=== PATIENT | male | born 1950 | race American Indian/Alaskan Native ===

== ENCOUNTER 2018-08-13 11:22 | Emergency (ER) | payer MEDICARE ==
[2018-08-13 12:13] VITALS: BP 129/85
[2018-08-13] MEDS ORDERED: DELTASONE PO ONE (12:59)
[2018-08-13] MEDS ORDERED: IBUPROFEN PO ONE (12:59)
--- NOTE | 2018-08-13 13:01 | Emergency Department Report ---
ED Extremity Problem HPI - General Chief complaint: Extremity Injury, Lower Stated complaint: RT BIG TOE INJURY Time Seen by Provider: 08/13/18 12:56 Source: patient Mode of arrival: Ambulatory Limitations: No Limitations - History of Present Illness Initial comments: 68 y/o male comes in for left great toe swelling and pain. Denies any trauma. started 2 days ago. Does not drink. No history of gout . MD Complaint: extremity pain, extremity swelling Onset/Timin -: days(s) Location: left, toe History of Same: No -: Yes arthralgia, No fever Radiation: proximal Severity scale (0 -10): 10 Quality: stabbing, aching Consistency: constant Improves with: nothing Worsens with: walking Associated Symptoms: denies other symptoms - Related Data Previous Rx's Medication Instructions Recorded Last Taken Type Ciprofloxacin HCl [Ciprofloxacin 500 mg PO BID 3 Days #6 tablet 07/06/18 Unknown Rx TAB] Loperamide [Imodium] 2 day PO TID 2 Days #12 capsule 07/06/18 Unknown Rx Promethazine [Phenergan] 25 mg PO Q6HR PRN #10 tab 07/06/18 Unknown Rx Ibuprofen [Motrin 600 MG tab] 600 mg PO ONCE PRN #15 tablet 08/13/18 Unknown Rx predniSONE [Deltasone] 40 mg PO QDAY 4 Days #8 tablet 08/13/18 Unknown Rx Allergies Allergy/AdvReac Type Severity Reaction Status Date / Time No Known Allergies Allergy Verified 08/13/18 11:25 ED Review of Systems ROS: Stated complaint: RT BIG TOE INJURY Other details as noted in HPI Comment: All other systems reviewed and negative ED Past Medical Hx - Past Medical History Hx Hypertension: Yes Additional medical history: kidney disease , high cholesterol - Surgical History Additional Surgical History: prostate, abd for bowel obs. - Social History Smoking Status: Never Smoker Substance Use Type: None - Medications Home Medications: Home Medications Medication Instructions Recorded Confirmed Last Taken Type Ciprofloxacin HCl [Ciprofloxacin 500 mg PO BID 3 Days #6 tablet 07/06/18 Unknown Rx TAB] Loperamide [Imodium] 2 day PO TID 2 Days #12 capsule 07/06/18 Unknown Rx Promethazine [Phenergan] 25 mg PO Q6HR PRN #10 tab 07/06/18 Unknown Rx Ibuprofen [Motrin 600 MG tab] 600 mg PO ONCE PRN #15 tablet 08/13/18 Unknown Rx predniSONE [Deltasone] 40 mg PO QDAY 4 Days #8 tablet 08/13/18 Unknown Rx ED Physical Exam - General Limitations: No Limitations General appearance: alert, in no apparent distress - Head Head exam: Present: atraumatic, normocephalic - Eye Eye exam: Present: normal appearance - ENT ENT exam: Present: mucous membranes moist - Neck Neck exam: Present: normal inspection - Expanded Lower Extremity Exam Left Hip exam: Present: full ROM Upper Leg exam: Present: normal inspection Knee exam: Present: normal inspection Lower Leg exam: Present: normal inspection, abrasion Foot/Toe exam: Present: tenderness, swelling, erythema. Absent: deformity Neuro vascular tendon exam: Present: no vascular compromise Gait: Positive: observed and limited by pain - Back Exam Back exam: Present: normal inspection - Neurological Exam Neurological exam: Present: alert, oriented X3 - Psychiatric Psychiatric exam: Present: normal affect, normal mood - Skin Skin exam: Present: warm, dry, intact, normal color. Absent: rash ED Course Vital Signs 08/13/18 12:09 Temperature 97.6 F Pulse Rate 81 Respiratory 18 Rate Blood Pressure 129/85 O2 Sat by Pulse 99 Oximetry ED Medical Decision Making - Medical Decision Making 68 y/o male with left great toe pain , swelling and rednes. Dx with gout. Will give prednisone and ibuprofen. Will give rx for prednisone and ibuprofen. Needs to follow up with his PCP. Critical care attestation.: If time is entered above; I have spent that time in minutes in the direct care of this critically ill patient, excluding procedure time. ED Disposition Clinical Impression: Gout Disposition: DC-01 TO HOME OR SELFCARE Is pt being admited?: No Does the pt Need Aspirin: No Condition: Stable Instructions: Acute Gouty Arthritis (ED) Additional Instructions: Take medication as prescribed follow up with your Primary Care Provider if symptoms persist or gets worst. Prescriptions: predniSONE [Deltasone] 40 mg PO QDAY 4 Days #8 tablet Ibuprofen [Motrin 600 MG tab] 600 mg PO ONCE PRN #15 tablet PRN Reason: Pain , Severe (7-10) Referrals: WATSON PERDOMO MD [Primary Care Provider] - 3-5 Days
== END 2018-08-13 13:26 | disposition home or self-care (01) ==
LOC: ED 11:22
DX: M10.072 Idiopathic gout, left ankle and foot (principal); I10 Essential (primary) hypertension; E78.00 Pure hypercholesterolemia, unspecified; Z79.1 Long term (current) use of non-steroidal anti-inflammatories (NSAID)
CPT/HCPCS: 99282; J7512

== ENCOUNTER 2020-11-25 07:09 | Inpatient (IN) | payer MEDICARE ==
--- NOTE | 2020-11-25 07:16 | Emergency Department Report ---
HPI - General Time Seen by Provider: 11/25/20 07:12 - HPI HPI: 70-year-old -Marshallese male presents to the emergency department via EMS from home with complaint of a left-sided facial droop and left-sided weakness that the patient noticed upon waking this morning around 6 AM. Patient went to sleep last night around 10 PM and was at his normal baseline at that time. He h as a past medical history of hypertension, chronic kidney disease not on HD, CHF. No history of any previous CVA. He denies any headache, vision change, numbness or paresthesias, chest pain, shortness of breath. He has not taken anything, nor received anything, for his symptoms prior to presentation today. No recent travel or sick contacts at home. ED Past Medical Hx - Past Medical History Hx Hypertension: Yes Additional medical history: kidney disease , high cholesterol - Surgical History Additional Surgical History: prostate, abd for bowel obs. - Social History Smoking Status: Never Smoker Substance Use Type: None - Medications Home Medications: Home Medications Medication Instructions Recorded Confirmed Last Taken Type Ciprofloxacin HCl [Ciprofloxacin 500 mg PO BID 3 Days #6 tablet 07/06/18 Unknown Rx TAB] Loperamide [Imodium] 2 day PO TID 2 Days #12 capsule 07/06/18 Unknown Rx Promethazine [Phenergan] 25 mg PO Q6HR PRN #10 tab 07/06/18 Unknown Rx Ibuprofen [Motrin 600 MG tab] 600 mg PO ONCE PRN #15 tablet 08/13/18 Unknown Rx predniSONE [Deltasone] 40 mg PO QDAY 4 Days #8 tablet 08/13/18 Unknown Rx ED Review of Systems ROS: Stated complaint: STROKE Other details as noted in HPI Comment: All other systems reviewed and negative Constitutional: denies: chills, fever Eyes: denies: eye pain, vision change ENT: denies: ear pain, throat pain Respiratory: denies: cough, shortness of breath Cardiovascular: denies: chest pain, palpitations Gastrointestinal: denies: abdominal pain, vomiting Genitourinary: denies: dysuria, discharge Musculoskeletal: denies: back pain, arthralgia Skin: denies: rash, lesions Neurological: weakness. denies: headache Physical Exam - Physical Exam Physical Exam: GENERAL: The patient is well-developed well-nourished. HENT: Normocephalic. Atraumatic. Patient has moist mucous membranes. EYES: Extraocular motions are intact. No nystagmus. NECK: Supple. Trachea is midline. CHEST/LUNGS: Clear to auscultation. There is no respiratory distress noted. HEART/CARDIOVASCULAR: Regular. There is no tachycardia. There is no murmur. ABDOMEN: Abdomen is soft, nontender. Patient has normal bowel sounds. There is no abdominal distention. SKIN: Skin is warm and dry. NEURO: The patient is awake, alert, and oriented. The patient is cooperative. Left-sided nasolabial fold paresis. Mild left upper extremity drift that does not hit the gurney. Muscle strength 5 out of 5 for bilateral lower extremities. MUSCULOSKELETAL: There is no tenderness or deformity. There is no limitation range of motion. ED Medical Decision Making - Lab Data Result diagrams: 11/25/20 07:50 11/25/20 07:50 Lab Results 11/25/20 11/25/20 11/25/20 Range/Units 07:50 07:50 07:50 WBC 3.8 L (4.5-11.0) K/mm3 RBC 5.20 H (3.65-5.03) M/mm3 Hgb 15.3 H (11.8-15.2) gm/dl Hct 47.1 H (35.5-45.6) % MCV 90 (84-94) fl MCH 29 (28-32) pg MCHC 33 (32-34) % RDW 13.4 (13.2-15.2) % Plt Count 105 L (140-440) K/mm3 Lymph % (Auto) 33.4 (13.4-35.0) % [place] % (Auto) 10.6 H (0.0-7.3) % Eos % (Auto) 1.5 (0.0-4.3) % Baso % (Auto) 0.6 (0.0-1.8) % Lymph # (Auto) 1.3 (1.2-5.4) K/mm3 [place] # (Auto) 0.4 (0.0-0.8) K/mm3 Eos # (Auto) 0.1 (0.0-0.4) K/mm3 Baso # (Auto) 0.0 (0.0-0.1) K/mm3 Seg Neutrophils % 53.9 (40.0-70.0) % Seg Neutrophils # 2.0 (1.8-7.7) K/mm3 PT 14.1 (12.2-14.9) Sec. INR 1.03 (0.87-1.13) APTT 32.8 (24.2-36.6) Sec. Thrombin Time 16.6 (15.1-19.6) Sec. Sodium 139 (137-145) mmol/L Potassium 4.3 (3.6-5.0) mmol/L Chloride 105.1 (98-107) mmol/L Carbon Dioxide 28 (22-30) mmol/L Anion Gap 10 mmol/L BUN 18 (9-20) mg/dL Creatinine 1.1 (0.8-1.3) mg/dL Estimated GFR > 60 ml/min BUN/Creatinine Ratio 16 % Glucose 108 H (75-100) mg/dL Calcium 9.5 (8.4-10.2) mg/dL Iron (49-181) ug/dL TIBC (250-450) mcg/dL Total Bilirubin 0.50 (0.1-1.2) mg/dL AST 33 (5-40) units/L ALT 22 (7-56) units/L Alkaline Phosphatase 79 (35-129) units/L Total Creatine Kinase 247 H (55-170) units/L CK-MB (CK-2) 8.0 H (0.0-4.0) ng/mL CK-MB (CK-2) Rel Index 3.2 (0-4) Troponin T 0.057 H (0.00-0.029) ng/mL Total Protein 6.5 (6.3-8.2) g/dL Albumin 3.8 L (3.9-5) g/dL Albumin/Globulin Ratio 1.4 % Triglycerides 65 (2-149) mg/dL Cholesterol 213 H (50-199) mg/dL LDL Cholesterol Direct 137 H (50-130) mg/dL HDL Cholesterol 71 H (40-59) mg/dL Cholesterol/HDL Ratio 3.00 % Vitamin B12 (211-911) pg/mL Folate (7.3-26.0) ng/mL TSH (0.270-4.200) mlU/mL Plasma/Serum Alcohol (0-0.07) % 11/25/20 11/25/20 11/25/20 Range/Units 07:50 07:50 07:50 WBC (4.5-11.0) K/mm3 RBC (3.65-5.03) M/mm3 Hgb (11.8-15.2) gm/dl Hct (35.5-45.6) % MCV (84-94) fl MCH (28-32) pg MCHC (32-34) % RDW (13.2-15.2) % Plt Count (140-440) K/mm3 Lymph % (Auto) (13.4-35.0) % [place] % (Auto) (0.0-7.3) % Eos % (Auto) (0.0-4.3) % Baso % (Auto) (0.0-1.8) % Lymph # (Auto) (1.2-5.4) K/mm3 [place] # (Auto) (0.0-0.8) K/mm3 Eos # (Auto) (0.0-0.4) K/mm3 Baso # (Auto) (0.0-0.1) K/mm3 Seg Neutrophils % (40.0-70.0) % Seg Neutrophils # (1.8-7.7) K/mm3 PT (12.2-14.9) Sec. INR (0.87-1.13) APTT (24.2-36.6) Sec. Thrombin Time (15.1-19.6) Sec. Sodium (137-145) mmol/L Potassium (3.6-5.0) mmol/L Chloride (98-107) mmol/L Carbon Dioxide (22-30) mmol/L Anion Gap mmol/L BUN (9-20) mg/dL Creatinine (0.8-1.3) mg/dL Estimated GFR ml/min BUN/Creatinine Ratio % Glucose (75-100) mg/dL Calcium (8.4-10.2) mg/dL Iron 45 L (49-181) ug/dL TIBC 271 (250-450) mcg/dL Total Bilirubin (0.1-1.2) mg/dL AST (5-40) units/L ALT (7-56) units/L Alkaline Phosphatase (35-129) units/L Total Creatine Kinase (55-170) units/L CK-MB (CK-2) (0.0-4.0) ng/mL CK-MB (CK-2) Rel Index (0-4) Troponin T (0.00-0.029) ng/mL Total Protein (6.3-8.2) g/dL Albumin (3.9-5) g/dL Albumin/Globulin Ratio % Triglycerides (2-149) mg/dL Cholesterol (50-199) mg/dL LDL Cholesterol Direct (50-130) mg/dL HDL Cholesterol (40-59) mg/dL Cholesterol/HDL Ratio % Vitamin B12 (211-911) pg/mL Folate (7.3-26.0) ng/mL TSH 2.370 (0.270-4.200) mlU/mL Plasma/Serum Alcohol < 0.01 (0-0.07) % 11/25/20 11/25/20 Range/Units 07:50 07:50 WBC (4.5-11.0) K/mm3 RBC (3.65-5.03) M/mm3 Hgb (11.8-15.2) gm/dl Hct (35.5-45.6) % MCV (84-94) fl MCH (28-32) pg MCHC (32-34) % RDW (13.2-15.2) % Plt Count (140-440) K/mm3 Lymph % (Auto) (13.4-35.0) % [place] % (Auto) (0.0-7.3) % Eos % (Auto) (0.0-4.3) % Baso % (Auto) (0.0-1.8) % Lymph # (Auto) (1.2-5.4) K/mm3 [place] # (Auto) (0.0-0.8) K/mm3 Eos # (Auto) (0.0-0.4) K/mm3 Baso # (Auto) (0.0-0.1) K/mm3 Seg Neutrophils % (40.0-70.0) % Seg Neutrophils # (1.8-7.7) K/mm3 PT (12.2-14.9) Sec. INR (0.87-1.13) APTT (24.2-36.6) Sec. Thrombin Time (15.1-19.6) Sec. Sodium (137-145) mmol/L Potassium (3.6-5.0) mmol/L Chloride (98-107) mmol/L Carbon Dioxide (22-30) mmol/L Anion Gap mmol/L BUN (9-20) mg/dL Creatinine (0.8-1.3) mg/dL Estimated GFR ml/min BUN/Creatinine Ratio % Glucose (75-100) mg/dL Calcium (8.4-10.2) mg/dL Iron (49-181) ug/dL TIBC (250-450) mcg/dL Total Bilirubin (0.1-1.2) mg/dL AST (5-40) units/L ALT (7-56) units/L Alkaline Phosphatase (35-129) units/L Total Creatine Kinase (55-170) units/L CK-MB (CK-2) (0.0-4.0) ng/mL CK-MB (CK-2) Rel Index (0-4) Troponin T (0.00-0.029) ng/mL Total Protein (6.3-8.2) g/dL Albumin (3.9-5) g/dL Albumin/Globulin Ratio % Triglycerides (2-149) mg/dL Cholesterol (50-199) mg/dL LDL Cholesterol Direct (50-130) mg/dL HDL Cholesterol (40-59) mg/dL Cholesterol/HDL Ratio % Vitamin B12 694.3 (211-911) pg/mL Folate 13.22 (7.3-26.0) ng/mL TSH (0.270-4.200) mlU/mL Plasma/Serum Alcohol (0-0.07) % - EKG Data -: EKG Interpreted by Oh EKG shows normal: sinus rhythm, axis (Left axis deviation), intervals, QRS complexes (Q waves to the septal leads), ST-T waves (Flattening of the T waves laterally) Rate: normal - EKG Data When compared to previous EKG there are: previous EKG unavailable Interpretation: other (Sinus rhythm at 75 bpm, left axis deviation, Q waves to the septal leads, flattening of the T waves laterally. No ST elevation AL.) - Radiology Data Radiology results: report reviewed CT HEAD WITHOUT CONTRAST INDICATION: CODE STROKE CALL ER MAIN AT 8199 Stroke symptoms TECHNIQUE: All CT scans at this location are performed using CT dose reduction for ALARA by means of automated exposure control. COMPARISON: None available. FINDINGS: BRAIN: No hemorrhage or mass effect are seen. No evidence of acute infarction is noted. ORBITS: Normal as visualized. SOFT TISSUES OF HEAD: Normal. CALVARIUM: Normal. VISUALIZED PARANASAL SINUSES AND MASTOID AIR CELLS: Moderate mucosal thickening is seen in the right maxillary sinus with mild right ethmoid thickening noted. No air-fluid levels are seen. ADDITIONAL FINDINGS: None. IMPRESSION: No acute intracranial abnormality. - Medical Decision Making This patient presents to the emergency department with a complaint of left-sided facial droop and left-sided weakness that started upon waking. Last known well time was at 10 PM last night, which takes this patient out of the TPA window. Code stroke was initiated. CT scan of the head without contrast does not show any hemorrhage or large vessel occlusion. He was seen by the telemedicine neurologist, whose recommendations are in the chart, but he agrees with the plan for admission and MRI, but does not feel the patient requires CT angiography studies at this time. Patient's labs have been mostly unremarkable except for a slightly elevated troponin level. The patient denies any chest pain and EKG does not have any morphology consistent with ST elevation myocardial infarction. The patient was given a full dose aspirin and admitted to the hospitalist service under Dr. Kelly. After admission, while still boarding in the emergency department, the patient had a brain MRI that shows an acute infarction of the right putamen and joy radiata. Critical Care Time: Yes Critical care time in (mins) excluding proc time.: 35 Critical care attestation.: If time is entered above; I have spent that time in minutes in the direct care of this critically ill patient, excluding procedure time. Critical care time was spent on this patient in doing his initial evaluation, multiple reevaluations, ordering and interpretation of labs and imaging, discussion with the telemedicine neurologist, multiple discussions with the patient. Critical Care Time: 35 minutes ED Disposition Clinical Impression: Elevated troponin CVA (cerebral vascular accident) Qualifiers: CVA mechanism: unspecified Qualified Code(s): I63.9 - Cerebral infarction, unspecified Disposition: ADMITTED INPATIENT Is pt being admited?: Yes Condition: Serious Time of Disposition: 08:40
--- NOTE | 2020-11-25 07:49 | Emergency Department Report ---
Blank Doc - Documentation Documentation: [facility] Consult Note # Demographics Consult Type: Acute Stroke Level 2 (4.5-24 hrs) Patient Location: Emergency Room First Name: Hipolito Last Name: Abe Date of : 1950 Age: 70 Gender: Male Facility: [facility] Time of Initial Page ( Time): 11/25/2020, 07:14 Time of Return Call ( Time): 11/25/2020, 07:15 # HPI History: 70 yo man last normal last night, presented with new onset of left sided weakness upon waking up today # Scores Time of exam and NIHSS ( Time): 11/25/2020, 07:42 Facial Palsy 4: [1] = Minor paralysis Motor Arm Left 5a: [1] = Drift NIHSS Total: 2 # Data Time Head CT personally read by me ( Time): 11/25/2020, 07:[address]: no bleed # Assessment Impression: left sided weakness acute stroke is possible out of tpa window # Plan Thrombolytic/Intervention: NOT IV Thrombolysis or IA Intervention candidate Thrombolytic Exclusion: > 4.5 hours Intraarterial Exclusion: no large vessel occlusion (LVO) Target Blood Pressure: SBP < 220 Labs: CBC comprehensive metabolic panel lipid panel TSH ua Diagnostic Test: echo with bubble study Therapy/Evaluation: speech/swallow consultation Medication: aspirin 325 mg daily DVT Prophylaxis: heparin 5000 units subcutaneously q 12 hours Other: consult on-site neurology service for full work-up and evaluation recommendations If patient has any neurological deterioration please call me back immediately I have discussed my recommendations with the referring provider Additional Recommendations: Admit for stroke work up mri brain Disposition: admit # Logistics Telemedicine: Interactive 2 way audio and visual telecommunication technology was utilized during this visit
--- NOTE | 2020-11-25 07:50 | Cat Scan Report ---
CT HEAD WITHOUT CONTRAST INDICATION: CODE STROKE CALL ER MAIN AT 8199 Stroke symptoms TECHNIQUE: All CT scans at this location are performed using CT dose reduction for ALARA by means of automated exposure control. COMPARISON: None available. FINDINGS: BRAIN: No hemorrhage or mass effect are seen. No evidence of acute infarction is noted. ORBITS: Normal as visualized. SOFT TISSUES OF HEAD: Normal. CALVARIUM: Normal. VISUALIZED PARANASAL SINUSES AND MASTOID AIR CELLS: Moderate mucosal thickening is seen in the right maxillary sinus with mild right ethmoid thickening noted. No air-fluid levels are seen. ADDITIONAL FINDINGS: None. IMPRESSION: No acute intracranial abnormality. CODE STROKE: Time of Communication (PARALEGAL SUPERVISOR/CDT): 0678 Licensed Practitioner Receiving Report: Dr. Perez Hernandez Signer Name: Richy Henning MD Signed: 11/25/2020 7:46 AM Workstation Name: [id number]
[2020-11-25 07:57] LABS: Basophils % (Auto) 0.6 % (0.0-1.8); Eosinophils # (Auto) 0.1 K/mm3 (0.0-0.4); Eosinophils % (Auto) 1.5 % (0.0-4.3); Hematocrit 47.1 % (35.5-45.6); Hemoglobin 15.3 gm/dl (11.8-15.2); Lymphocytes # (Auto) 1.3 K/mm3 (1.2-5.4); Lymphocytes % (Auto) 33.4 % (13.4-35.0); Mean Corpuscular HGB Conc 33 % (32-34); Mean Corpuscular Volume 90 fl (84-94); Monocytes # (Auto) 0.4 K/mm3 (0.0-0.8); Monocytes % (Auto) 10.6 % (0.0-7.3); Platelet Count 105 K/mm3 (140-440); Red Cell Distribution Width 13.4 % (13.2-15.2)
[2020-11-25 08:07] LABS: INR 1.03 (0.87-1.13)
[2020-11-25 08:08] LABS: Partial Thromboplastin Time 32.8 Sec. (24.2-36.6); Thrombin Time 16.6 Sec. (15.1-19.6)
[2020-11-25 08:15] LABS: Alanine Aminotransferase 22 units/L (7-56); Albumin 3.8 g/dL (3.9-5); BUN/Creatinine Ratio 16; Blood Urea Nitrogen 18 mg/dL (9-20); Calcium 9.5 mg/dL (8.4-10.2); Hemolysis Index 8
[2020-11-25] MEDS ORDERED: ASPIRIN 81 MG TAB CHEW PO ONE (08:22)
[2020-11-25 08:49] LABS: HDL Cholesterol 71 mg/dL (40-59); LDL Cholesterol,Direct 137 mg/dL (50-130)
--- NOTE | 2020-11-25 10:39 | History and Physical Report ---
History of Present Illness Date of examination: 11/25/20 Date of admission: 11/25/20 08:40 Chief complaint: left sided weakness History of present illness: 70-year-old -Maur[place] male with h/o CHF, HTN, HLD, CKD presents to the emergency department via EMS from home with complaint of a left-sided facial droop and left-sided weakness. Patient noticed symptoms upon waking this morning around 6 AM. Patient went to sleep last night around 10 PM and was at his normal baseline at that time. Patient has no history of any previous CVA. He denies any headache, vision change, numbness or paresthesias, chest pain, shortness of breath. He has not taken anything, nor received anything, for his symptoms prior to presentation today. No recent travel or sick contacts at home. CT head obtained in the ER showed no acute process, teleneurology was consulted and patient did not qualify for TPA. Patient is being admitted for stroke work-up. Review of System: Constitutional: no fever, no chills, no weight loss Ears, eyes, nose, mouth and throat: no nasal congestion, no nasal discharge, no sinus pressure, no vision change, no red eye. Neck: No neck pain or rigidity. Cardiovascular: No chest pain, no orthopnea, no palpitations, no leg swelling Respiratory: No shortness of breath, no cough, no congestion, no wheezing Gastrointestinal: no abdominal pain, no nausea, no vomiting Genitourinary : no dysuria, no hematuria Musculoskeletal: no joint swelling or muscle ache Integumentary: no rash, no pruritis Neurological: no parathesias, no numbness, no tingling, + left-sided weakness Endocrine: no cold or heat intolerance, no polyuria or polydipsia Hematologic/Lymphatic: no easy bruising, no easy bleeding, no gland swelling Allergic/Immunologic: no urticaria, no angioedema. Past History Past Medical History: heart failure, hypertension, other (Asthma) Past Surgical History: No surgical history Social history: denies: smoking, alcohol abuse Family history: hypertension Medications and Allergies Allergies Allergy/AdvReac Type Severity Reaction Status Date / Time No Known Allergies Allergy Verified 08/13/18 11:25 Home Medications Medication Instructions Recorded Confirmed Last Taken Type Ciprofloxacin HCl [Ciprofloxacin 500 mg PO BID 3 Days #6 tablet 05/09/19 09/29/21 Unknown Rx TAB] Loperamide [Imodium] 2 day PO TID 2 Days #12 capsule 07/06/18 11/26/20 Unknown Rx Promethazine [Phenergan] 25 mg PO Q6HR PRN #10 tab 07/06/18 11/26/20 Unknown Rx Ibuprofen [Motrin 600 MG tab] 600 mg PO ONCE PRN #15 tablet 08/13/18 11/26/20 Unknown Rx predniSONE [Deltasone] 40 mg PO QDAY 4 Days #8 tablet 08/13/18 11/26/20 Unknown Rx Exam - Physical Exam Narrative exam: GENERAL: well-developed and well-nourished elderly -Mauritian male lying on bed appeared to be in no discomfort. HEENT: Normocephalic. Atraumatic. No conjunctival congestion or icterus. Patient has moist mucous membranes. NECK: Supple. Trachea midline. CHEST/LUNGS: Clear to auscultated bilaterally, breathing nonlabored. No wheezes crackles or rhonchi. HEART/CARDIOVASCULAR: Regular in rate and rhythm. S1 and S2 positive. ABDOMEN: Abdomen is soft, nontender. Patient has normal bowel sounds. SKIN: There is no rash. Warm and dry. NEURO: Left-sided weakness. Follows command. MUSCULOSKELETAL: No joint effusion or tenderness. EXTRIMITY: No edema, no cyanosis or clubbing. PSYCH: Cooperative. - Constitutional Vitals: Temp Pulse Resp BP Pulse Ox 97.9 F 59 L 20 113/78 98 11/25/20 07:13 11/25/20 09:30 11/25/20 09:30 11/25/20 09:30 11/25/20 09:40 HEART Score - HEART Score Troponin: Troponin T 0.057 ng/mL (0.00-0.029) H 11/25/20 07:50 Results - Labs CBC & Chem 7: 11/25/20 07:50 11/26/20 05:27 Labs: Abnormal lab results 11/25/20 11/25/20 Range/Units 07:50 07:50 WBC 3.8 L (4.5-11.0) K/mm3 RBC 5.20 H (3.65-5.03) M/mm3 Hgb 15.3 H (11.8-15.2) gm/dl Hct 47.1 H (35.5-45.6) % Plt Count 105 L (140-440) K/mm3 [place] % (Auto) 10.6 H (0.0-7.3) % Glucose 108 H (75-100) mg/dL Total Creatine Kinase 247 H (55-170) units/L CK-MB (CK-2) 8.0 H (0.0-4.0) ng/mL Troponin T 0.057 H (0.00-0.029) ng/mL Albumin 3.8 L (3.9-5) g/dL Cholesterol 213 H (50-199) mg/dL LDL Cholesterol Direct 137 H (50-130) mg/dL HDL Cholesterol 71 H (40-59) mg/dL - Imaging and Cardiology CT Scan - head: report reviewed (No acute abnormality) Assessment and Plan --Acute CVA - We will admit the patient to remote telemetry - We'll place on aspirin and statin, will consult neurology - CT scan of the head obtained in the ER and shows - We will get MRI of the head, carotid Doppler, 2-D echocardiogram - We will also get hemoglobin A1c level and fasting lipid panel - Allow permissive hypertension, will hold BP meds if patient is taking any at home - Consult PTOT and speech therapist - Keep the patient nothing by mouth for now, monitor blood glucose - Further management will be based on pending lab results and imaging studies --Hypertension, continue to monitor BP: Currently normotensive --Hyperlipidemia: Initiated on statin --Elevated troponin Monitor serial cardiac enzymes, consult cardiology, obtain 2D echocardiogram Continue aspirin and statin for now And follow cardiology recommendations, patient also thrombocytopenic will avoid heparin for now --H/o CHF, 2d echo ordered for EF assessment --Anemia and thrombocytopenia Order iron panel, B12 and folic acid - We'll place on GI prophylaxis to avoid stress ulcer - Place on DVT prophylaxis with SCD for thrombocytopenia
[2020-11-25 11:48] LABS: Iron 45 ug/dL (49-181); Total Iron Binding Capacity 271 mcg/dL (250-450)
[2020-11-25] MEDS ORDERED: ACETAMINOPHEN 325 MG TAB PO PRN (12:00)
[2020-11-25] MEDS ORDERED: ONDANSETRON 4 MG/2 ML INJ IV PRN (12:00)
[2020-11-25] MEDS ORDERED: PROMETHAZINE 25 MG RECT SUPP PR PRN (12:00)
[2020-11-25] MEDS ORDERED: METOCLOPRAMIDE 10 MG TAB PO PRN (12:00)
[2020-11-25] MEDS ORDERED: MAGNESIUM HYDROXIDE (MOM) ORAL LIQD UDC PO PRN (12:00)
[2020-11-25] MEDS ORDERED: oxyCODONE /ACETAMINOPHEN 5-325MG TAB PO PRN (12:00)
--- NOTE | 2020-11-25 12:24 | Magnetic Resonance Report ---
MR brain wo con INDICATION / CLINICAL INFORMATION: stroke. TECHNIQUE: Multiplanar, multisequence MR images of the brain were obtained. COMPARISON: 11/25/2020 CT head FINDINGS: INTRACRANIAL: Restricted diffusion seen within the right putamen and joy radiata. Associated T2 si gnal hyperintensity. No hemorrhagic conversion. No hemorrhage. Ventricular caliber is normal. No extr a-axial collection. No mass. No herniation. Major intracranial vascular flow voids are preserved. ORBITS: No significant abnormality of visualized orbits. SINUSES / MASTOIDS: No significant abnormality of visualized sinuses and mastoid air cells. ADDITIONAL FINDINGS: None. IMPRESSION: 1. Acute infarction the right putamen and joy radiata. Signer Name: Terrell Kaufman MD Signed: 11/25/2020 12:20 PM Workstation Name: [id number]
--- NOTE | 2020-11-25 12:44 | Vascular Lab Report ---
BILATERAL CAROTID DUPLEX DOPPLER ULTRASOUND HISTORY: CVA, strokelike symptoms. COMPARISON: None. TECHNIQUE: Whitney scale, color and spectral Doppler imaging was performed of the extracranial neck margaret donna. All stenosis measurements were obtained in comparison with the distal internal carotid artery per the SRU consensus criteria. FINDINGS: Right: There is no significant atherosclerotic disease. Peak systolic velocity in the CCA is 73 cm/ s with end-diastolic velocity of 13 cm/s. Peak systolic velocity in the proximal ICA is 74 cm/s with end-diastolic velocity of 29 cm/s. ICA to CCA ratio is less than 2. There is antegrade flow in the E CA and the vertebral artery. Peak systolic velocity within the vertebral artery is 43 cm/s with end-d iastolic velocity of 11 cm/s. The vertebral artery demonstrates slightly high resistive waveforms. Left: There is no significant atherosclerotic disease. Peak systolic velocity in the CCA is 75 cm/s w ith end-diastolic velocity of 27 cm/s. Peak systolic velocity in the proximal ICA is 61 cm/s with end -diastolic velocity of 25 cm/s. ICA to CCA ratio is less than 2. There is antegrade flow in the ECA and the vertebral artery. Peak systolic velocity within the vertebral artery is 26 cm/s with end-oglesby tolic velocity of 7 cm/s. The vertebral artery demonstrates slightly high resistive waveforms. IMPRESSION: No hemodynamically significant stenosis by NASCET criteria. Both vertebral arteries demonstrate antegrade flow with slightly high resistive waveforms. Signer Name: Nathanael Goddard MD Signed: 11/25/2020 12:40 PM Workstation Name: [id number]
--- NOTE | 2020-11-25 14:45 | Consultation ---
History of Present Illness Consult date: 11/25/20 Reason for Consult: Stroke Chief complaint: Left-sided weakness History of present illness: 70 yo male with htn, asthma, renal disease who presents with a LKNormal time of ~10 pm when he went to bed and then waking up with noted (by family member) a left facial droop and noted with left arm/leg weakness. Patient notes he was in his normal state of health except for this asthma that has been acting up lately for which he takes an inhaler. Past History Past Medical History: hypertension, other (asthma, renal disease) Medications and Allergies Allergies Allergy/AdvReac Type Severity Reaction Status Date / Time No Known Allergies Allergy Verified 08/13/18 11:25 Home Medications Medication Instructions Recorded Confirmed Last Taken Type Ciprofloxacin HCl [Ciprofloxacin 500 mg PO BID 3 Days #6 tablet 07/06/18 Unknown Rx TAB] Loperamide [Imodium] 2 day PO TID 2 Days #12 capsule 07/06/18 Unknown Rx Promethazine [Phenergan] 25 mg PO Q6HR PRN #10 tab 07/06/18 Unknown Rx Ibuprofen [Motrin 600 MG tab] 600 mg PO ONCE PRN #15 tablet 08/13/18 Unknown Rx predniSONE [Deltasone] 40 mg PO QDAY 4 Days #8 tablet 08/13/18 Unknown Rx Active Meds: Active Medications Acetaminophen (Acetaminophen 325 Mg Tab) 650 mg PO Q4H PRN PRN Reason: Pain, Mild (1-3) Aspirin (Aspirin 325 Mg Tab) 325 mg PO QDAY JAQUAN Atorvastatin Calcium (Atorvastatin 40 Mg Tab) 80 mg PO QHS JAQUAN Bisacodyl (Bisacodyl 10 Mg Rect Supp) 10 mg HI QDAY PRN PRN Reason: Constipation Enoxaparin Sodium (Enoxaparin 40 Mg/0.4 Ml Inj) 40 mg SUB-Q QDAY@2200 JAQUAN; Protocol Magnesium Hydroxide (Magnesium Hydroxide (Mom) Oral Liqd Udc) 30 ml PO Q4H PRN PRN Reason: Constipation Metoclopramide HCl (Metoclopramide 10 Mg Tab) 10 mg PO Q6H PRN PRN Reason: Nausea And Vomiting Ondansetron HCl (Ondansetron 4 Mg/2 Ml Inj) 4 mg IV Q8H PRN PRN Reason: Nausea And Vomiting Oxycodone/Acetaminophen (Oxycodone /Acetaminophen 5-325mg Tab) 1 tab PO Q6H PRN PRN Reason: Pain, Moderate (4-6) Pantoprazole Sodium (Pantoprazole 40 Mg Tab) 40 mg PO QDAC JAQUAN Promethazine HCl (Promethazine 25 Mg Rect Supp) 25 mg HI Q6H PRN PRN Reason: Nausea And Vomiting Sodium Chloride (Sodium Chloride 0.9% 10 Ml Flush Syringe) 10 ml IV PRN PRN PRN Reason: LINE FLUSH Review of Systems All systems: negative (as per HPI;) Physical Examination - Vital Signs Vital Signs: Vital Signs Temp 97.9 F 11/25/20 07:13 - Physical Exam Narrative exam: Gen: nad, well-nourished; Head: normocephalic; Eyes: no gaze deviation; no ptosis; ENT: normal vocalization; CVS: warm and well-perfused; Pulm: no respiratory distress; GI: appears non-distended; Ext: no cyanosis at distal extremities; Skin: no acute rash appreciated at distal extremities; Heme: no pathologic bruising appreciated at distal extremities; Neuro: alert, oriented to name, age, month, no dysarthria, no aphasia, CN 2 - PERRL, visual moreno grossly intact, CN 3, 4, 6 - EOMI, CN 5 - facial sensation symmetric to light touch, CN 7 - facial movement symmetric, CN 8 - hearing grossly intact, CN 9, 10 - uvula midline, CN 11 - shrug symmetric, CN 12 - tongue midline; Motor - at least 5-/5 at right exts and at least 4/5 at left exts; Sensory - light touch symmetric, Cerebellar - fnf /hts intact, Gait - deferred secondary to fall risk; NIHSS (1a.) Level of Consciousness:0 (1b.) LOC Questions:0 (1c.) LOC Commands:0 (2.) Best Gaze:0 (3.) Visual:0 (4.) Facial Palsy:0 (5a.) Motor Arm, Left:0 (5b.) Motor Arm, Right:0 (6a.) Motor Leg, Left:0 (6b.) Motor Leg, Right:0 (7.) Limb Ataxia:0 (8.) Sensory:0 (9.) Best Language:0 (10.) Dysarthria:0 (11.) Extinction and Inattention:0 NIHSS Total Score: 0 Results - Laboratory Findings CBC and BMP: 11/25/20 07:50 11/25/20 07:50 Abnormal Lab Findings: Abnormal Labs 11/25/20 11/25/20 11/25/20 07:50 07:50 07:50 WBC 3.8 L RBC 5.20 H Hgb 15.3 H Hct 47.1 H Plt Count 105 L [place] % (Auto) 10.6 H Glucose 108 H Iron 45 L Total Creatine Kinase 247 H CK-MB (CK-2) 8.0 H Troponin T 0.057 H Albumin 3.8 L Cholesterol 213 H LDL Cholesterol Direct 137 H HDL Cholesterol 71 H Assessment and Plan 70 yo male with htn, asthma, renal disease who presents with a LKNormal time of ~10 pm when he went to bed and then waking up with noted (by family member) a left facial droop and noted with left arm/leg weakness. Patient notes he was in his normal state of health except for this asthma that has been acting up lately for which he takes an inhaler. 1. Acute Ischemic Stroke (cardioembolic) - ASA 325 mg PO qday, pending TTEcho (if normal, recommend MARK); long-term cardiac monitoring for paroxysmal afib; unremarkable CUS, MRA Head w/o contrast; elevated LDL; normal TSH, SBP goal 160- 200 mmHg and DBP 80-100 mmHg for 72 hours more. Statin therapy for a goal LDL of 70, when patient passes swallow evaluation. PT/OT/ST/Swallow evaluation. Long-term risk-factor modification, including a strict diet/exercise regimen for secondary stroke prophylaxis. 2. Hypertension - goal SBP 160-200 mmHg and DBP 80-100 mmHg for 72 more hours and then slowly titrate to normotension. 3. Hyperlipidemia - goal LDL of 70 w/ statin therapy if no contraindications. 4. Left-sided weakness - pt/ot evaluation/monitoring. 5. Unsteady Gait - pt/ot evaluation/monitoring; fall precautions. 6. Asthma - pt denies shortness of breath; +wheezing; inhalers/steroid therapy; further management per primary team. 7. Hx of Renal Disease - will avoid cta head w/ wo contrast to confirm no evidence of intracranial atherosclerotic disease; ordered MRA Head w/o contrast. Abe Harrington MD Neurology [id number]
[2020-11-25] MEDS ORDERED: SODIUM CHLORIDE 0.9% 1000 ML 1,000 ML IV SCH (17:30)
[2020-11-25] MEDS: ENOXAPARIN 40 MG/0.4 ML INJ SUB-Q SCH (22:22)
[2020-11-26 06:14] LABS: BUN/Creatinine Ratio 17; Blood Urea Nitrogen 20 mg/dL (9-20); Calcium 9.1 mg/dL (8.4-10.2); Hemolysis Index 7
[2020-11-26 07:16] LABS: Bilirubin,Urine NEG (Negative); Blood,Urine NEG (Negative); Color,Urine Yellow (Yellow); Granular Casts,Urine 1 /LPF; Mucus,Urine FEW /HPF; Protein,Urine <15 mg/dL mg/dL (Negative)
[2020-11-26 07:19] LABS: Amphetamine Screen,Urine Negative; Benzodiazepines Screen,Urine Negative; Cannabinoid Screen,Urine Negative; Cocaine Screen,Urine Negative; Methadone Screen,Urine Negative; Opiate Screen,Urine Negative
[2020-11-26] MEDS: PANTOPRAZOLE 40 MG TAB PO SCH (08:54)
--- NOTE | 2020-11-26 09:47 | Magnetic Resonance Report ---
MRA HEAD 11/26/2020 INDICATION / CLINICAL INFORMATION: Acute Ischemic Stroke. TECHNIQUE: Routine MRA of the head is performed. 3-D/MIP reformats postprocessed. COMPARISON: None available. FINDINGS: MRA HEAD: Intracranial internal carotid arteries: No significant abnormality. Anterior cerebral arteries: No significant abnormality. Middle cerebral arteries: There is limited flow signal in the distal right middle cerebral artery and its branches, which would be consistent with stenosis or partial occlusion. Left MCA appearance is u nremarkable. 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 Prominent posterior communicating arteries are p resent bilaterally. Basilar artery: Developmentally hypoplastic. Posterior cerebral arteries: No significant abnormality. IMPRESSION: Findings suggest decreased flow in right middle cerebral artery due to stenosis or parti al occlusion. Signer Name: Nikhil Connors MD Signed: 11/26/2020 9:42 AM Workstation Name: [id number]
[2020-11-26] MEDS: ASPIRIN 325 MG TAB PO SCH (10:15)
--- NOTE | 2020-11-26 12:12 | Consultation ---
History of Present Illness Consult date: 11/26/20 Consult reason: elevated troponin History of present illness: This is a 70-year old M who presented with facial droop and left sided weakness, admitted with acute ischemic stroke. Further workup with an echocardiogram showed a decreased systolic function, ejection fraction 25% with severe LVH. Patient has a known history of nonischemic cardiomyopathy by noninvasive ischemic workup a year ago that showed no reversible ischemia but a e jection fraction 15% by echocardiogram. 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 Co-morbidities includes hypertension and chronic renal dysfunction which is managed by Dr Abarca. Patient denies chest pain and denies unusual shortness of breath. There is no lower extremity edema. An ECG done is sinus rhythm, no acute ST or T wave changes. Past History Past Medical History: hypertension, other (asthma, renal disease, CHF) Medications and Allergies Allergies Allergy/AdvReac Type Severity Reaction Status Date / Time No Known Allergies Allergy Verified 08/13/18 11:25 Home Medications Medication Instructions Recorded Confirmed Last Taken Type Ciprofloxacin HCl [Ciprofloxacin 500 mg PO BID 3 Days #6 tablet 07/06/18 Unknown Rx TAB] Loperamide [Imodium] 2 day PO TID 2 Days #12 capsule 07/06/18 Unknown Rx Promethazine [Phenergan] 25 mg PO Q6HR PRN #10 tab 07/06/18 Unknown Rx Ibuprofen [Motrin 600 MG tab] 600 mg PO ONCE PRN #15 tablet 08/13/18 Unknown Rx predniSONE [Deltasone] 40 mg PO QDAY 4 Days #8 tablet 08/13/18 Unknown Rx Active Meds: Active Medications Acetaminophen (Acetaminophen 325 Mg Tab) 650 mg PO Q4H PRN PRN Reason: Pain, Mild (1-3) Aspirin (Aspirin 325 Mg Tab) 325 mg PO QDAY [facility] Last Admin: 11/26/20 10:15 Dose: Not Given Documented by: Atorvastatin Calcium (Atorvastatin 40 Mg Tab) 80 mg PO QHS [facility] Last Admin: 11/25/20 22:22 Dose: 80 mg Documented by: Bisacodyl (Bisacodyl 10 Mg Rect Supp) 10 mg [place] QDAY PRN PRN Reason: Constipation Enoxaparin Sodium (Enoxaparin 40 Mg/0.4 Ml Inj) 40 mg SUB-Q QDAY@2200 [facility]; Protocol Last Admin: 11/25/20 22:22 Dose: 40 mg Documented by: Sodium Chloride (Nacl 0.9% 1000 Ml) 1,000 mls @ 75 mls/hr IV DIRECT JAQUAN Magnesium Hydroxide (Magnesium Hydroxide (Mom) Oral Liqd Udc) 30 ml PO Q4H PRN PRN Reason: Constipation Metoclopramide HCl (Metoclopramide 10 Mg Tab) 10 mg PO Q6H PRN PRN Reason: Nausea And Vomiting Ondansetron HCl (Ondansetron 4 Mg/2 Ml Inj) 4 mg IV Q8H PRN PRN Reason: Nausea And Vomiting Oxycodone/Acetaminophen (Oxycodone /Acetaminophen 5-325mg Tab) 1 tab PO Q6H PRN PRN Reason: Pain, Moderate (4-6) Pantoprazole Sodium (Pantoprazole 40 Mg Tab) 40 mg PO QDAC [facility] Last Admin: 11/26/20 08:54 Dose: Not Given Documented by: Promethazine HCl (Promethazine 25 Mg Rect Supp) 25 mg [place] Q6H PRN PRN Reason: Nausea And Vomiting Sodium Chloride (Sodium Chloride 0.9% 10 Ml Flush Syringe) 10 ml IV PRN PRN PRN Reason: LINE FLUSH Review of Systems Cardiovascular: no chest pain, no palpitations, no edema, no syncope, no shortness of breath Physical Examination Vital Signs Temp 97.9 F 11/25/20 07:13 General appearance: no acute distress HEENT: Positive: PERRL Neck: Positive: trachea midline Cardiac: Positive: Reg Rate and Rhythm Lungs: Positive: Decreased Breath Sounds Neuro: Positive: Weakness Extremities: Absent: edema Results 11/25/20 07:50 11/26/20 05:27 Comprehensive Metabolic Panel 11/26/20 Range/Units 05:27 Sodium 141 (137-145) mmol/L Potassium 4.4 (3.6-5.0) mmol/L Chloride 106.6 (98-107) mmol/L Carbon Dioxide 27 (22-30) mmol/L BUN 20 (9-20) mg/dL Creatinine 1.2 (0.8-1.3) mg/dL Glucose 98 (75-100) mg/dL Calcium 9.1 (8.4-10.2) mg/dL Assessment and Plan Acute ischemic CVA Hx of nonischemic cardiomyopathy takes entresto as an outpatient. LVEF 25% by echo this admission. 10/2019 MPI: no reversible ischemia. 10/2019 Echo: LVEF 15-20%.
--- NOTE | 2020-11-26 16:23 | Progress Note ---
Assessment and Plan --Acute CVA of right foot putamen coronary radiata Continue aspirin and statin MRA ordered with contrast MRI showed right putamen coronary radiata acute CVA Continue on aspirin and statin, consulted neurology and recommended to consider MARK Wait for PT OT eval, patient tolerating diet --Dilated cardiomyopathy with EF 25% Cardiology consulted, 2D echo showed EF 25% --Hypertension, continue to monitor BP: Currently normotensive --Hyperlipidemia: Initiated on statin --Elevated troponin likely due to underlying CHF Monitor serial cardiac enzymes, consult cardiology, 2D echo showed EF 25% Continue aspirin and statin for now And follow cardiology recommendations, patient also thrombocytopenic will avoid heparin for now --Leukopenia and thrombocytopenia Normal B12 level, H&H stable - We'll place on GI prophylaxis to avoid stress ulcer - Place on DVT prophylaxis with SCD for thrombocytopenia Daily clinical course 11/26/20: Pending bubble study for 2D echocardiogram. neuro recommended MARK will follow cardiology recommendation. Continue current management and plan. If clinically stable and clears by neuro and cardiology possible discharge tomorrow. Subjective Date of service: 11/26/20 Interval history: Patient seen and examined. Medical records and medication list reviewed. No acute event overnight noted by the RN. Patient denies any chest pain or difficulty breathing. Patient is tolerating diet. Discussed plan of care at bedside with patient. Objective - Exam Narrative Exam: GENERAL: well-developed and well-nourished elderly -Portuguese male lying on bed appeared to be in no discomfort. HEENT: Normocephalic. Atraumatic. No conjunctival congestion or icterus. Patient has moist mucous membranes. NECK: Supple. Trachea midline. CHEST/LUNGS: Clear to auscultated bilaterally, breathing nonlabored. No wheezes crackles or rhonchi. HEART/CARDIOVASCULAR: Regular in rate and rhythm. S1 and S2 positive. ABDOMEN: Abdomen is soft, nontender. Patient has normal bowel sounds. SKIN: There is no rash. Warm and dry. NEURO: Left-sided weakness. Follows command. MUSCULOSKELETAL: No joint effusion or tenderness. EXTRIMITY: No edema, no cyanosis or clubbing. PSYCH: Cooperative. - Constitutional Vitals: Vital Signs - 12hr 11/26/20 11/26/20 11/26/20 06:00 07:48 10:00 Temperature 98.0 F Pulse Rate 77 77 Respiratory 18 Rate Blood Pressure 108/82 O2 Sat by Pulse 96 99 Oximetry 11/26/20 11/26/20 11:00 14:00 Temperature Pulse Rate 77 Respiratory Rate Blood Pressure O2 Sat by Pulse 96 Oximetry - Labs CBC & Chem 7: 11/25/20 07:50 11/26/20 05:27 Labs: Abnormal lab results 11/25/20 11/26/20 11/26/20 Range/Units 20:22 00:51 05:27 Troponin T 0.058 H 0.057 H 0.058 H (0.00-0.029) ng/mL Urine WBC (Auto) (0.0-6.0) /HPF 11/26/20 Range/Units 06:00 Troponin T (0.00-0.029) ng/mL Urine WBC (Auto) 23.0 H (0.0-6.0) /HPF HEART Score - HEART Score Troponin: Troponin T 0.058 ng/mL (0.00-0.029) H 11/26/20 05:27
[2020-11-26] MEDS: ENOXAPARIN 40 MG/0.4 ML INJ SUB-Q SCH (21:22)
[2020-11-27] MEDS: ASPIRIN 325 MG TAB PO SCH (09:14)
[2020-11-27] MEDS: PANTOPRAZOLE 40 MG TAB PO SCH (09:14)
--- NOTE | 2020-11-27 14:40 | Discharge Summary ---
Providers - Providers Date of Admission: 11/25/20 14:05 Date of discharge: 11/27/20 Attending physician: YOSEF MCHUGH 11/25/20 Consult to Physician [CONS] Routine Comment: Consulting Provider: MADDY ADDISON Physician Instructions: Reason For Exam: cva 11/25/20 08:53 Speech Therapy Evaluation and Treat [CONS] Stat Reason For Exam: Code Stroke 11/25/20 10:35 Consult to Case Management [CONS] Routine Services Needed at Discharge: Other Master [employer]acht Notified:: Yes Phone number called:: [phone] Was contact made?: Yes If yes, spoke with:: Neeru Joya Time called:: 14:00 Consult to Dietitian/Nutrition [CONS] Routine Physician Instructions: Reason For Exam: Reason for Consult: Nutrition Recommendations Reason for Consult: Diet education Occupational Therapy Evaluate and Treat [CONS] Routine Comment: Reason For Exam: Neuro deficits Physical Therapy Evaluation and Treat [CONS] Routine Comment: Reason For Exam: Neuro deficits 11/25/20 10:41 Consult to Physician [CONS] Routine Comment: Consulting Provider: RUPINDER WASHINGTON Physician Instructions: Reason For Exam: Elevated troponin 11/26/20 13:23 Speech Therapy Evaluation and Treat [CONS] Routine Reason For Exam: eval/treat sp cva Primary care physician: RECREATION ATTENDANT SUPERVISOR Hospitalization Condition: Serious Pertinent studies: Head CT, Brain MRI, carotid doppler, head MRA, 2d echo Hospital course: 70-year-old -Citizen Of [place] male with h/o CHF, HTN, HLD, CKD presents to the emergency department via EMS from home with complaint of a left-sided facial droop and left-sided weakness. CT head obtained in the ER showed no acute process, teleneurology was consulted and patient did not qualify for TPA. Patient was admitted for stroke work-up, neurology consult and ordered brain MRI, carotid doppler, head MRA, 2d echo. MRI brain showed acute infarction of the right putamen and joy radiata. Further workup with an echocardiogram showed a decreased systolic function, ejection fraction 25% with severe LVH. Patient has a known history of nonischemic cardiomyopathy by noninvasive ischemic workup a year ago that showed no reversible ischemia but a ejection fraction 15% by echocardiogram. Cardiology was consulted and recommended a 30-day event monitor to assess for occult atrial fibrillation as outpt. Patient placed on antifailure medications, antiplatelets, statin. Neurology and PT cleared for discharge. ST cleared for regular diet. Patient was then discharged home in stable condition with outpt followup. Disposition: 01 HOME / SELF CARE / HOMELESS Final Discharge Diagnosis (Prints w/discharge instructions): --Acute CVA of right foot putamen coronary radiata. --Dilated cardiomyopathy with EF 25%. --Hypertension. --Hyperlipidemia. --Elevated troponin likely due to underlying CHF. --Leukopenia and thrombocytopenia Time spent for discharge: 34 minutes Core Measure Documentation - Palliative Care Palliative Care/ Comfort Measures: Not Applicable - Core Measures Any of the following diagnoses?: stroke - Stroke Discharge Requirements Statin for LDL = or >70 mg/dl on DC: Yes Anticoag for atrial fib/atrial flutter: Not Applicable Antithrombotic for ischemic stroke: Yes Exam - Physical Exam Narrative exam: GENERAL: well-developed and well-nourished elderly -Citizen Of [place] male lying on bed appeared to be in no discomfort. HEENT: Normocephalic. Atraumatic. No conjunctival congestion or icterus. Patient has moist mucous membranes. NECK: Supple. Trachea midline. CHEST/LUNGS: Clear to auscultated bilaterally, breathing nonlabored. No wheezes crackles or rhonchi. HEART/CARDIOVASCULAR: Regular in rate and rhythm. S1 and S2 positive. ABDOMEN: Abdomen is soft, nontender. Patient has normal bowel sounds. SKIN: There is no rash. Warm and dry. NEURO: Left-sided weakness. Follows command. MUSCULOSKELETAL: No joint effusion or tenderness. EXTRIMITY: No edema, no cyanosis or clubbing. PSYCH: Cooperative. - Constitutional Vitals: Temp Pulse Resp BP Pulse Ox 99.0 F 55 L 18 117/84 97 11/27/20 03:21 11/27/20 08:00 11/27/20 08:00 11/27/20 03:21 11/27/20 11:43 Plan Activity: advance as tolerated Weight Bearing Status: Weight Bear as Tolerated Diet: low fat, low salt Additional Instructions: Follow-up with your pleater hand in 1 week. 30-day event monitor to assess for occult atrial fibrillation Follow up with: PRIMARY CAREMD [Primary Care Provider] - 3-5 Days Prescriptions: AtorvaSTATin [Lipitor] 80 mg PO QHS #30 tablet Aspirin 325 mg PO QDAY #30 tablet lisinopriL [Zestril TAB] 2.5 mg PO QDAY #30 tablet
[2020-11-27] MEDS ORDERED: LISINOPRIL 5 MG TAB PO SCH (15:00)
[2020-11-27 16:31] VITALS: BP 147/110
--- NOTE | 2020-11-27 18:10 | Progress Note ---
Assessment and Plan - Patient Problems (1) Chronic left ventricular systolic heart failure Current Visit: Yes Status: Acute Plan to address problem: Patient has severe left ventricular systolic dysfunction, with severe concentric left ventricle hypertrophy. Contrast bubble study was negative for PFO. Continue guideline directed medical therapy including afterload agents and beta- blockers. With regards to his current CVA, oral antiplatelet agents will be directed by neurology service. As outpatient, we will recommend a 30-day event monitor to assess for occult atrial fibrillation. Subjective Date of service: 11/27/20 Interval history: Patient is comfortable, ambulating in his room with no complaints and no apparent residual motor weakness. The contrast bubble study was done to complete his echocardiographic study, it was negative for PFO. Objective Vital Signs Temp Pulse Pulse Resp BP Pulse Ox 11/27/20 15:58 97.2 F L 17 147/110 11/27/20 15:49 97.2 F L 15 109/74 11/27/20 11:43 97 11/27/20 11:17 98.3 F 15 129/77 11/27/20 08:00 55 L 18 97 11/27/20 03:21 99.0 F 72 16 117/84 100 11/26/20 23:02 98.7 F 69 16 144/71 96 11/26/20 22:00 53 L 11/26/20 20:27 55 L 18 97 11/26/20 20:05 99 11/26/20 19:07 98.2 F 53 L 16 122/75 90 - Physical Examination HEENT: Positive: PERRL Neck: Positive: trachea midline Cardiac: Positive: Reg Rate and Rhythm Lungs: Positive: Decreased Breath Sounds Neuro: Positive: Weakness Extremities: Absent: edema
--- NOTE | 2020-12-01 14:10 | Electrocardiograph Report ---
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
== END 2020-11-27 18:15 | disposition home or self-care (01) | DRG 65 ==
LOC: ED 07:09 → 4A 08:40 → OBSVTOIN 14:05 → 4A 19:50
PROVIDERS: ADMIT Internal Medicine; ATTEND Internal Medicine
DX: I63.89 Other cerebral infarction (principal); I42.0 Dilated cardiomyopathy; I13.0 Hypertensive heart and chronic kidney disease with heart failure and stage 1 through stage 4 chronic kidney disease, or unspecified chronic kidney disease; E78.00 Pure hypercholesterolemia, unspecified; R77.8 Other specified abnormalities of plasma proteins; N18.9 Chronic kidney disease, unspecified; I50.9 Heart failure, unspecified; E78.5 Hyperlipidemia, unspecified; D64.9 Anemia, unspecified; D69.6 Thrombocytopenia, unspecified; R26.81 Unsteadiness on feet; Z82.49 Family history of ischemic heart disease and other diseases of the circulatory system
CPT/HCPCS: 36415; 70450; 70544; 70551; 80048; 80053; 80061; 80307; 80320; 81001; 82550; 82553; 82607; 82747; 83550; 84443; 84484; 85025; 85610; 85670; 85730; 87086; 87641; 93005; 93306; 93880; G0378; G0480; J1650

== ENCOUNTER 2021-11-09 11:28 | Emergency (ER) | payer MEDICARE ==
[2021-11-09 11:36] VITALS: BP 93/58
--- NOTE | 2021-11-11 09:38 | Electrocardiograph Report ---
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
== END 2021-11-09 19:01 | disposition left against medical advice (07) ==
LOC: ED 11:28
DX: R06.02 Shortness of breath (principal); M79.89 Other specified soft tissue disorders; Z53.21 Procedure and treatment not carried out due to patient leaving prior to being seen by health care provider
CPT/HCPCS: 93005